=== PATIENT | male | born 1930 | race Caucasian/White ===

== ENCOUNTER 2019-08-04 12:17 | Inpatient (IN) | payer MEDICARE ==
[~2019-08-04] VITALS: Ht 172.7 cm; Wt 83.9 kg
--- NOTE | 2019-08-04 12:51 | NUR ---
BIB [facility] FOR REPORT OF "CONFUSION". PATIENT IS AWAKE AND ALERT. PLACED ON AM ONITOR. 12 LEAD EKG DONE. IV PLAED BY [facility] IN THE FIELD. PATIENT IS ABLE TO ANSWER SOME QUESTIONS APPROPRIATELY BUT NOT ALL.
[2019-08-04 13:22] LABS: BASOPHILS % (AUTO) 0.6 % (0.0-2.0); EOSINOPHILS # (AUTO) 0.2 K/uL (0.0-0.7); EOSINOPHILS % (AUTO) 2.3 % (0.0-7.0); HEMATOCRIT 40.5 % (36.7-47.1); HEMOGLOBIN 13.4 g/dL (12.5-16.3); LYMPHOCYTES # (AUTO) 1.5 K/uL (20.0-40.0); LYMPHOCYTES % (AUTO) 19.9 % (20.5-51.5); MEAN CORPUSCULAR HEMOGLOBIN 32.7 uug (23.8-33.4); MEAN CORPUSCULAR HGB CONC 33 g/dL (32.5-36.3); MEAN CORPUSCULAR VOLUME 99.1 fL (73.0-96.2); MONOCYTES # (AUTO) 0.7 K/uL (2.0-10.0); MONOCYTES % (AUTO) 9.6 % (0.0-11.0); NEUTROPHILS # (AUTO) 5.1 K/uL (1.8-8.9); NEUTROPHILS % (AUTO) 67.6 % (38.5-71.5); PLATELET COUNT (AUTO) 227 K/uL (152-348); RED BLOOD CELL COUNT(AUTO) 4.08 MIL/uL (4.06-5.63); WHITE BLOOD COUNT (AUTO) 7.6 K/uL (3.6-10.2)
[2019-08-04 13:26] LABS: CARBON DIOXIDE 29 mmol/L (21-32); CHLORIDE 105 mmol/L (98-107); CREATININE 1.6 mg/dL (0.6-1.3); GLUCOSE 98 mg/dL (74-106); POTASSIUM 4.8 mmol/L (3.5-5.1); UREA NITROGEN, BLOOD 33 mg/dL (7-18)
[2019-08-04 13:32] LABS: ALANINE AMINOTRANSFERASE 28 U/L (16-63); ALKALINE PHOSPHATASE 105 U/L (50-136); ASPARTATE AMINOTRANSFERASE 19 U/L (15-37); BILIRUBIN,DIRECT 0.1 mg/dL (0.0-0.2); BILIRUBIN,TOTAL 0.5 mg/dL (0.2-1.0)
[2019-08-04 13:48] LABS: THYROID STIMULATING HORMONE 2.146 mIU/mL (0.358-3.740)
--- NOTE | 2019-08-04 14:20 | NUR ---
Pt unable to provide urine through urinal. In and out catheter done, sample obtained. Drained 500cc of urine. Sample sent to lab, as ordered.
[2019-08-04 14:32] LABS: *BILIRUBIN,URIN NEGATIVE (NEGATIVE); *BLOOD, URINE NEGATIVE (NEGATIVE); *CLARITY,URINE CLEAR (CLEAR); *COLOR,URINE YELLOW (YELLOW); *KETONES,URINE NEGATIVE (NEGATIVE); *UROBILINOGEN,URINE 0.2 E.U./dl (NORMAL); LEUKOCYTE ESTERASE ,URINE NEGATIVE (NEGATIVE); NITRITE, URINE NEGATIVE (NEGATIVE); PH,URINE 5.5 (5.0-8.0); UGLUCOSE NEGATIVE (NEGATIVE)
--- NOTE | 2019-08-04 14:44 | NUR ---
[facility] Admitting MD paged for panel call. Awaiting call back.
--- NOTE | 2019-08-04 15:01 | NUR ---
PATIENT TO BE ADMITTED TO HOSPITAL. REPORT GIVEN TO BOBBY SLAUGHTER. PATIENT IS AWAKE AND ALERT WITH NO COMPLAINTS.
[2019-08-04] MEDS ORDERED: Medication Not On Formulary EA (Ergocalciferol (Vitamin D2) (Vitamin D2 TAB) 50,000 UNIT PO SCH (15:15)
[2019-08-04] MEDS ORDERED: ONDANSETRON 4 MG/2 ML VIAL IV PRN (15:30)
--- NOTE | 2019-08-04 15:54 | NUR ---
Box virus test done in ER, tele floor and Zaim notified. Bertrand VILLALOBOS aware
--- NOTE | 2019-08-04 16:00 | NUR ---
Received patient from ER via [facility] with Diagnosis of Altered Mental Status, Acute kidney failure and cough to r/o covid 19, Patient is awake and verbally responsive. A/Ox 2, No signs of distress noted. No SOB. saturating 96% via Room Air. No complain of pain or discomfort. 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 patient was placed on contact and droplet isolation for r/o covid 19, proper PPE strictly Observed. All needs attended and met. Kept clean and comfortable. Will endorse to Oncoming Nurse.
[2019-08-04] MEDS: IV NS 1000 ML 1,000 ML IV PRN (16:44)
[2019-08-04] MEDS ORDERED: Medication Not On Formulary EA (Apixaban (Eliquis) 2.5 MG) PO SCH (17:00)
[2019-08-04] MEDS: APIXABAN 5 MG TABLET PO SCH (17:00)
[2019-08-04 18:12] LABS: FERRITIN 150 ng/mL (26-388)
[2019-08-04] MEDS: ATORVASTATIN 40 MG TABLET PO SCH (20:01)
[2019-08-04] MEDS: TAMSULOSIN HCL 0.4 MG CAP.SR.24H PO SCH (20:01)
[2019-08-04] MEDS: LATANOPROST OPHT DROP 2.5 ML BOTTLE LEFTEYE SCH (20:01)
[2019-08-04] MEDS: MIRTAZAPINE 15 MG TABLET PO SCH (20:01)
[2019-08-04] MEDS: TIMOLOL MALEATE 0.5% OPHT DROP 5 ML BOTTLE EACHEYE SCH (20:02)
[2019-08-04] MEDS: BRIMONIDINE 0.2% OPHT DROP 10 ML BOTTLE EACHEYE SCH (20:02)
[2019-08-04 20:16] VITALS: BP 142/90
[2019-08-04] MEDS ORDERED: Medication Not On Formulary EA (Mirtazapine 7.5 MG) PO SCH (21:00)
[2019-08-05 00:20] VITALS: BP 140/0
[2019-08-05 04:30] VITALS: BP 153/91
--- NOTE | 2019-08-05 05:17 | NUR ---
Patient slept intermittently. A&Ox2, forgetful. No SOB noted. IV on L hand intact and patent w/ IVF infusing. Afib on Tele monitor. On droplet and contact isolation for possible COVID19. All needs attended. Will endorse accordingly
[2019-08-05] MEDS: IV NS 1000 ML 1,000 ML IV PRN ×2 (05:59→20:57)
[2019-08-05] MEDS: PANTOPRAZOLE SODIUM 40 MG TABLET.DR PO SCH (06:00)
[2019-08-05 07:11] LABS: BASOPHILS % (AUTO) 0.4 % (0.0-2.0); EOSINOPHILS # (AUTO) 0.2 K/uL (0.0-0.7); EOSINOPHILS % (AUTO) 2.9 % (0.0-7.0); HEMATOCRIT 39.1 % (36.7-47.1); HEMOGLOBIN 12.7 g/dL (12.5-16.3); LYMPHOCYTES # (AUTO) 1.5 K/uL (20.0-40.0); MEAN CORPUSCULAR HEMOGLOBIN 32.2 uug (23.8-33.4); MEAN CORPUSCULAR HGB CONC 33 g/dL (32.5-36.3); MEAN CORPUSCULAR VOLUME 98.8 fL (73.0-96.2); MONOCYTES # (AUTO) 0.8 K/uL (2.0-10.0); MONOCYTES % (AUTO) 10.6 % (0.0-11.0); NEUTROPHILS # (AUTO) 5.1 K/uL (1.8-8.9); NEUTROPHILS % (AUTO) 66.1 % (38.5-71.5); PLATELET COUNT (AUTO) 202 K/uL (152-348); RED BLOOD CELL COUNT(AUTO) 3.96 MIL/uL (4.06-5.63); WHITE BLOOD COUNT (AUTO) 7.7 K/uL (3.6-10.2)
[2019-08-05 07:31] LABS: ALANINE AMINOTRANSFERASE 24 U/L (16-63); ALKALINE PHOSPHATASE 100 U/L (50-136); ASPARTATE AMINOTRANSFERASE 18 U/L (15-37); BILIRUBIN,TOTAL 0.6 mg/dL (0.2-1.0); CARBON DIOXIDE 28 mmol/L (21-32); CHLORIDE 107 mmol/L (98-107); CREATININE 1.4 mg/dL (0.6-1.3); GLUCOSE 94 mg/dL (74-106); POTASSIUM 4.3 mmol/L (3.5-5.1); TOTAL PROTEIN, SERUM 6.5 g/dL (6.4-8.2); UREA NITROGEN, BLOOD 28 mg/dL (7-18)
--- NOTE | 2019-08-05 08:00 | NUR ---
Received patient in bed, awake and verbally responsive with episode of forgetfulness. No signs of distress noted. Afebrile. No complain of Pain or discomfort. Remains of droplet and contact isolation for r/o covid19. proper PPE strictly Observed. kept clean and comfortable. Will continue to monitor.
[2019-08-05] MEDS: LISINOPRIL 5 MG TABLET PO SCH (08:16)
[2019-08-05] MEDS: TIMOLOL MALEATE 0.5% OPHT DROP 5 ML BOTTLE EACHEYE SCH ×2 (08:16→20:25)
[2019-08-05] MEDS: ASCORBIC ACID 500 MG TABLET PO SCH (08:16)
[2019-08-05] MEDS: BRIMONIDINE 0.2% OPHT DROP 10 ML BOTTLE EACHEYE SCH ×2 (08:16→20:26)
[2019-08-05] MEDS: METOPROLOL SUCCINATE XL 50 MG TAB.SR.24H PO SCH (08:16)
[2019-08-05] MEDS: ASPIRIN 81 MG TAB.CHEW PO SCH (08:16)
[2019-08-05] MEDS: MULTIVIT, IRON, MIN NO. 8, FA TABLET PO SCH (08:16)
[2019-08-05] MEDS: APIXABAN 5 MG TABLET PO SCH ×2 (08:25→18:18)
[2019-08-05] MEDS ORDERED: Medication Not On Formulary EA (Esomeprazole Mag Trihydrate (Nexium) 40 MG) PO SCH (09:00)
[2019-08-05] MEDS ORDERED: Medication Not On Formulary EA (Ascorbic Acid (Vitamin C TAB) 1,000 MG) PO SCH (09:00)
[2019-08-05] MEDS ORDERED: Medication Not On Formulary EA (Multivitamins W-Minerals (Multivitamin With Minerals) 1 PO SCH (09:00)
[2019-08-05 12:36] VITALS: BP 134/75
--- NOTE | 2019-08-05 13:58 | NUR ---
Received a negative covid19 result, relayed to [facility], will be discharge in tomorrow AM.
[2019-08-05 16:16] LABS: *BILIRUBIN,URIN NEGATIVE (NEGATIVE); *BLOOD, URINE NEGATIVE (NEGATIVE); *CLARITY,URINE CLEAR (CLEAR); *COLOR,URINE YELLOW (YELLOW); *KETONES,URINE NEGATIVE (NEGATIVE); LEUKOCYTE ESTERASE ,URINE NEGATIVE (NEGATIVE); NITRITE, URINE NEGATIVE (NEGATIVE); PH,URINE 5.5 (5.0-8.0); UGLUCOSE NEGATIVE (NEGATIVE)
--- NOTE | 2019-08-05 16:20 | NUR ---
Patient was moved to Room 306, gave report to Santiago SLAUGHTER.
--- NOTE | 2019-08-05 16:20 | NUR ---
Patient reassigned to me and report was given by Audrey. Patient in bed awake but confused. On room air with no SOB. IV on left hand infusing NS @ 75. Oriented to new nurse, place, time and date. Bed locked, in low position, siderails 2x up. Call light within reach. Not in any distress.
[2019-08-05 16:23] LABS: BACTERIA,URINE NONE SEEN /HPF (NONE SEEN); RBC,URINE 0-3 /HPF (0-3); SQUAMOUS EPITHELIAL CELL,UR FEW /HPF (NONE SEEN); WBC,URINE 0-3 /HPF (0-3)
[2019-08-05 16:27] LABS: *CREATININE,URINE 80.3 mg/dL (30-125); *URINE TOTAL PROTEIN RANDOM 16.2 mg/dL (<150/24HR)
--- NOTE | 2019-08-05 17:30 | NUR ---
Patient very confused and kept getting out of bed. Reoriented to place since patient thinks he's in his house. Wanted to go to the bathroom, assisted, urinated clear yellow urine. Refused to get back to bed and instead wanted to go out, reoriented and was able to bring back to bed. Bed locked in lowest position, siderails 3x up. Reeducated to use call light if needs help, verbalized understanding.
--- NOTE | 2019-08-05 19:00 | NUR ---
Endorsed to manufacturing shift supervisor nurse. Patient very confused, kept getting out of bed. Reoriented to stay in bed and use call light. Bed locked in lowest position, 3x siderails up. Bed alarm on. Not in acute distress.
[2019-08-05 19:30] VITALS: BP 138/89
--- NOTE | 2019-08-05 19:30 | NUR ---
RECEIVED PATIENT. A/OX1. NO S/S OF DISTRESS. V/S STABLE. WILL CONTINUE TO MONITOR.
--- NOTE | 2019-08-05 20:00 | NUR ---
CONFUSED,OUT OF BED REORIENTED SEVERAL TIMES, MADE COMFORTABLE FALL PRECAUTIONS SIDE RAILS UP X3, CALL LIGHT WITHIN REACH,NO COMPLAINTS MADE,
[2019-08-05] MEDS: TAMSULOSIN HCL 0.4 MG CAP.SR.24H PO SCH (20:25)
[2019-08-05] MEDS: MIRTAZAPINE 15 MG TABLET PO SCH (20:25)
[2019-08-05] MEDS: ATORVASTATIN 40 MG TABLET PO SCH (20:25)
[2019-08-05] MEDS: LATANOPROST OPHT DROP 2.5 ML BOTTLE LEFTEYE SCH (20:25)
--- NOTE | 2019-08-05 21:00 | NUR ---
PATIENT CARE HANDED TO SCHOOL ATHLETIC DIRECTOR NURSE.
[2019-08-06 05:47] VITALS: BP 145/90
[2019-08-06 05:51] LABS: BASOPHILS # (AUTO) 0.1 K/uL (0.0-8.0); BASOPHILS % (AUTO) 0.6 % (0.0-2.0); EOSINOPHILS # (AUTO) 0.2 K/uL (0.0-0.7); EOSINOPHILS % (AUTO) 2.8 % (0.0-7.0); HEMATOCRIT 37.4 % (36.7-47.1); HEMOGLOBIN 12.6 g/dL (12.5-16.3); LYMPHOCYTES # (AUTO) 1.4 K/uL (20.0-40.0); LYMPHOCYTES % (AUTO) 17.1 % (20.5-51.5); MEAN CORPUSCULAR HGB CONC 34 g/dL (32.5-36.3); MEAN CORPUSCULAR VOLUME 98.4 fL (73.0-96.2); MONOCYTES # (AUTO) 0.9 K/uL (2.0-10.0); NEUTROPHILS # (AUTO) 5.8 K/uL (1.8-8.9); NEUTROPHILS % (AUTO) 68.5 % (38.5-71.5); PLATELET COUNT (AUTO) 200 K/uL (152-348); RED BLOOD CELL COUNT(AUTO) 3.81 MIL/uL (4.06-5.63); WHITE BLOOD COUNT (AUTO) 8.5 K/uL (3.6-10.2)
--- NOTE | 2019-08-06 06:06 | NUR ---
CONFUSED BUT DIRECTABLE,SLEPT AT SHORT INTERVALS,TELEMETRY ATRIAL FIB
[2019-08-06] MEDS: PANTOPRAZOLE SODIUM 40 MG TABLET.DR PO SCH (06:15)
[2019-08-06 06:27] LABS: BILIRUBIN,TOTAL 0.6 mg/dL (0.2-1.0); CREATININE 1.3 mg/dL (0.6-1.3); MAGNESIUM 1.8 mg/dL (1.8-2.4); PHOSPHOROUS 3.4 mg/dL (2.5-4.9); POTASSIUM 4.3 mmol/L (3.5-5.1); TOTAL PROTEIN, SERUM 6.3 g/dL (6.4-8.2)
[2019-08-06] MEDS: ASCORBIC ACID 500 MG TABLET PO SCH (08:36)
[2019-08-06] MEDS: ASPIRIN 81 MG TAB.CHEW PO SCH (08:36)
[2019-08-06] MEDS: MULTIVIT, IRON, MIN NO. 8, FA TABLET PO SCH (08:36)
[2019-08-06] MEDS: TIMOLOL MALEATE 0.5% OPHT DROP 5 ML BOTTLE EACHEYE SCH (08:41)
[2019-08-06] MEDS: BRIMONIDINE 0.2% OPHT DROP 10 ML BOTTLE EACHEYE SCH (08:41)
[2019-08-06] MEDS: METOPROLOL SUCCINATE XL 50 MG TAB.SR.24H PO SCH (08:44)
[2019-08-06 08:45] VITALS: BP 165/99
[2019-08-06] MEDS: LISINOPRIL 5 MG TABLET PO SCH (08:45)
[2019-08-06] MEDS: APIXABAN 5 MG TABLET PO SCH (08:46)
[2019-08-06] MEDS ORDERED: ERGOCALCIFEROL 50,000 UNIT CAPSULE PO SCH (09:00)
[2019-08-06] MEDS: IV NS 1000 ML 1,000 ML IV PRN (09:59)
--- NOTE | 2019-08-06 12:00 | NUR ---
RECEIVED DISCHARGE ORDERS TO [facility] VIA AMBULANCE WITH 2 EMT, DISCHARGE INSTRUCTION GIVEN TO PATIENT AND FACILITY. NO SOB AND NO C/O PAIN NOTED . KEPT CLEAN AND DRY AT ALL TIME. IV AND ID REMOVED . BELONGINGS ACCOUNTED FOR AND SIGNED. QUESTIONS AND CONCERNS ADDRESSED. RP NOTIFIED OF DISCHARGE.
[2019-08-08 05:06] LABS: A/G RATIO 1.3 (0.7-1.7); ALBUMIN 3.3 g/dL (2.9-4.4); ALPHA-1-GLOBULIN 0.2 g/dL (0.0-0.4); ALPHA-2-GLOBULIN 0.8 g/dL (0.4-1.0); BETA GLOBULIN 0.6 g/dL (0.7-1.3); GAMMA GLOBULIN 0.9 g/dL (0.4-1.8); GLOBULIN, TOTAL 2.5 g/dL (2.2-3.9); M-SPIKE Not Observed g/dL (Not Observed)
== END 2019-08-06 12:00 | DRG 682 ==
LOC: ER 12:17 → TELE3 15:05
PROVIDERS: ADMIT Nurse Practitioner Acute Care; ATTEND Nurse Practitioner Acute Care
DX: N17.0 Acute kidney failure with tubular necrosis (principal); G93.41 Metabolic encephalopathy; D68.69 Other thrombophilia; I48.20 Chronic atrial fibrillation, unspecified; I42.8 Other cardiomyopathies; I13.0 Hypertensive heart and chronic kidney disease with heart failure and stage 1 through stage 4 chronic kidney disease, or unspecified chronic kidney disease; F03.90 Unspecified dementia, unspecified severity, without behavioral disturbance, psychotic disturbance, mood disturbance, and anxiety; I25.10 Atherosclerotic heart disease of native coronary artery without angina pectoris; I50.9 Heart failure, unspecified; Z66 Do not resuscitate; N40.0 Benign prostatic hyperplasia without lower urinary tract symptoms; Z95.810 Presence of automatic (implantable) cardiac defibrillator; Z79.82 Long term (current) use of aspirin; Z79.01 Long term (current) use of anticoagulants; N18.9 Chronic kidney disease, unspecified; K21.9 Gastro-esophageal reflux disease without esophagitis; D64.9 Anemia, unspecified; Z96.643 Presence of artificial hip joint, bilateral
CPT/HCPCS: 36415; 70030-TC; 70450; 71045; 83605; 83735; 83970; 84100; 84155; 84156; 84165; 84300; 84443; 85025; 85730; 87086; 87400; 93005; A4663; C1758; G0378; J7030; U0002

== ENCOUNTER 2020-06-26 11:12 | Emergency (ER) | payer MEDICARE, OTHER ==
[~2020-06-26] VITALS: Ht 170.2 cm; Wt 81.6 kg
[~2020-06-26 11:12] MED LIST: ACET-73 PO; APIX2.5T PO; ASCO-382 PO; ASPI81TA31 PO; ATOR40TA PO; BRIM5DRO2 OP; ERGO2000 PO; ESOM40CA PO; LISI-782 PO; METO-357 PO; MIRT7.5T10 PO; MULT-213 PO; TAMS-3 PO; TRAV5DRO OP; ZINC56.713 TP; [UNRECOGNIZED DRUG - CODE] IJ
[2020-06-26] MEDS ORDERED: GUAI-717 PO (11:29)
[2020-06-26] MEDS ORDERED: TRAZ-182 PO (11:29)
[2020-06-26] MEDS ORDERED: BENZ-13 PO (11:29)
== END 2020-06-26 14:37 ==
LOC: ER 11:12
DX: S46.911A Strain of unspecified muscle, fascia and tendon at shoulder and upper arm level, right arm, initial encounter (principal); W01.0XXA Fall on same level from slipping, tripping and stumbling without subsequent striking against object, initial encounter; Y92.099 Unspecified place in other non-institutional residence as the place of occurrence of the external cause; F03.90 Unspecified dementia, unspecified severity, without behavioral disturbance, psychotic disturbance, mood disturbance, and anxiety; S70.00XA Contusion of unspecified hip, initial encounter; Z96.643 Presence of artificial hip joint, bilateral; K21.9 Gastro-esophageal reflux disease without esophagitis; I48.91 Unspecified atrial fibrillation; Z79.01 Long term (current) use of anticoagulants; I42.9 Cardiomyopathy, unspecified; I25.10 Atherosclerotic heart disease of native coronary artery without angina pectoris; I50.9 Heart failure, unspecified; Z79.899 Other long term (current) drug therapy
CPT/HCPCS: 70450; 71045; 72170; 73030; 73060; A4663

== ENCOUNTER 2020-07-10 18:26 | Emergency (ER) | payer MEDICARE ==
[~2020-07-10] VITALS: Ht 170.2 cm; Wt 79.4 kg
[~2020-07-10 18:26] MED LIST changes: +BENZ-13 PO; -ERGO2000 PO; +GUAI-717 PO; +TRAZ-182 PO
--- NOTE | 2020-07-10 18:42 | NUR ---
[email or web address], medical screening exam in progress
--- NOTE | 2020-07-10 19:16 | NUR ---
Assumed care of patient from day shift SUKHJINDER Khan. Pt lying in bed, asleep, appears comfotable. Right UE with large bruise from wrist to brachial area.
--- NOTE | 2020-07-10 21:20 | NUR ---
Epic panel call placed, spoke to Kimberly stated she will get a hold of Dr. Santiago for admitting.
[2020-07-10] MEDS ORDERED: TRAZ-182 PO (21:25)
[2020-07-10] MEDS ORDERED: MULT1TAB82 PO (21:25)
--- NOTE | 2020-07-10 21:32 | NUR ---
Dr. Minor on panel call with Dr. Santiago. Patient okay to discharge back to [facility].
--- NOTE | 2020-07-10 21:58 | NUR ---
Telephone call to [facility] ambulance, spoke to [facility] [[email or web address] and requested transportation back to [facility] [place]. ETA between [phone].
--- NOTE | 2020-07-10 22:10 | NUR ---
Telephone call to [facility], spoke to nurse Harrington and informed that pt will be returning back there, gave report and states understanding.
--- NOTE | 2020-07-10 22:30 | NUR ---
Patient requested for water to drink and given.
--- NOTE | 2020-07-10 22:55 | NUR ---
Patient discharged to [facility] in stable condition. Picked up by [facility] ambulance [id number], via gurney accompanied by 2 paramedics. Written and verbal after care instructions given. All belongings with pt
[2020-07-10 23:04] VITALS: BP 114/64
== END 2020-07-10 22:55 ==
LOC: ER 18:30
DX: S52.024A Nondisplaced fracture of olecranon process without intraarticular extension of right ulna, initial encounter for closed fracture (principal); X58.XXXA Exposure to other specified factors, initial encounter; Y93.9 Activity, unspecified; Y92.099 Unspecified place in other non-institutional residence as the place of occurrence of the external cause; I82.611 Acute embolism and thrombosis of superficial veins of right upper extremity; K21.9 Gastro-esophageal reflux disease without esophagitis; I48.91 Unspecified atrial fibrillation; Z79.01 Long term (current) use of anticoagulants; I50.9 Heart failure, unspecified; I25.10 Atherosclerotic heart disease of native coronary artery without angina pectoris; F03.90 Unspecified dementia, unspecified severity, without behavioral disturbance, psychotic disturbance, mood disturbance, and anxiety; Z95.810 Presence of automatic (implantable) cardiac defibrillator
CPT/HCPCS: 73080; A4663